=== PATIENT | female | born 1955 | race Caucasian/White ===

== ENCOUNTER 2022-03-03 14:40 | Emergency (ER) | payer OTHER ==
[~2022-03-03] VITALS: Ht 167.6 cm; Wt 89.4 kg
[2022-03-03] MEDS ORDERED: CYMBALTA60 MG PO (14:57)
[2022-03-03] MEDS ORDERED: NOVOLOG10 ML SC (14:58)
[2022-03-03] MEDS ORDERED: LANTUS SOL100 UNIT/1 SC (14:59)
[2022-03-03] MEDS ORDERED: COREG12.5 M1 PO (16:44)
== END 2022-03-03 16:55 | disposition home or self-care (01) ==
LOC: ED 14:40
DX: M70.62 Trochanteric bursitis, left hip (principal); M70.61 Trochanteric bursitis, right hip; Z88.1 Allergy status to other antibiotic agents; Z88.8 Allergy status to other drugs, medicaments and biological substances; Z88.5 Allergy status to narcotic agent; Y93.F2 Activity, caregiving, lifting

== ENCOUNTER → 2022-07-22 | Outpatient (CLI) | payer MEDICARE, OTHER ==
[~2022-07-22] MED LIST: COREG12.5 M1 PO; CYMBALTA60 MG PO; LANTUS SOL100 UNIT/1 SC; NOVOLOG10 ML SC
[2022-07-22 15:47] LABS: URINE CREATININE RANDOM 106.83 mg/dL
== END | disposition home or self-care (01) ==
LOC: LAB 14:51
PROVIDERS: ATTEND Surgery
DX: I10 Essential (primary) hypertension (principal); E78.5 Hyperlipidemia, unspecified; R80.9 Proteinuria, unspecified; E87.8 Other disorders of electrolyte and fluid balance, not elsewhere classified